=== PATIENT | male | born 1930 | race Caucasian/White ===

== ENCOUNTER → 2017-07-31 | Outpatient (CLI) | payer OTHER ==
[~2017-07-31] MED LIST: AMLO5 PO; AMOX875 PO; ASPI325 PO; ATEN50 PO; Aspirin EC81 MG PO; Bactrim Ds Tab1 EACH PO; CHRO200; CLOP75 PO; DOCU100 PO; EXTRA STRENGTH500 MG PO; FISH OIL 1,0001 EAC1 PO; GLIP5 PO; HYDACE5 PO; HYDROCHLOROTHIAZIDE PO; LISI20 PO; LISINOPRIL PO; LOVA20 PO; LOVA40 PO; MAGOXI400 PO; NITR.4SL SL; ONDA4ODT MM; Omega 3 1,0001 EACH PO; PROM25 PO; ROXICODONE5 MG PO; RXTRAM50 PO; TAMS.4ER PO; TRAM50 PO; UBID10 PO; ZINC15 PO
[2017-07-31 18:24] LABS: CHOL/HDL RATIO 3.2; Cholesterol 132 mg/dL (50-200); HDL Cholesterol 41 mg/dL (>39); Low Density Lipoprotein Chol 40 mg/dL (0-110); Triglycerides 255 mg/dL (30-160); Very Low Density Lipoprot Chol 51 mg/dL (6-32)
== END ==
LOC: LAB 17:47 → LAB SHORT 17:47
PROVIDERS: Nurse Practitioner Adult Health
DX: E78.5 Hyperlipidemia, unspecified (principal); I10 Essential (primary) hypertension
CPT/HCPCS: 80061